=== PATIENT | female | born 1975 | race Caucasian/White ===

== ENCOUNTER 2019-06-19 08:52 | Emergency (ER) | payer MEDICARE, MEDICAID ==
[~2019-06-19] VITALS: Ht 165.1 cm; Wt 88.0 kg
[~2019-06-19 08:52] MED LIST: AMIT25TA PO; HYDR4TAB48 PO; LAMO150T3 PO; LAMO300T PO; Morphine ER PO; ONDA4TAB10 PO; OXYC15TA PO; TIZA2CAP PO
[2019-06-19] MEDS ORDERED: PROCHLORPERAZINE 5 MG/ML, 2ML ONE (09:29)
[2019-06-19] MEDS ORDERED: PROCHLORPERAZINE 5 MG/ML, 2ML IVPush ONE (09:30)
[2019-06-19] MEDS ORDERED: DIPHENHYDRAMINE 50 MG/ML, 1ML ONE (09:30)
--- NOTE | 2019-06-19 09:37 | NUR ---
PT PRESENTS W MIGRAINE, SENZITIVITY TO LIGHT, N/V. PT NEURO INTACT. PT HAS HX OF MIGRAINES. IV ESTABLISHED AND MEDICATED PER ORDERS
[2019-06-19] MEDS ORDERED: DIPHENHYDRAMINE 50 MG/ML, 1ML IVPush ONE (10:00)
--- NOTE | 2019-06-19 10:29 | NUR ---
pt sleeping, vss. to dc soon
[2019-06-19] MEDS ORDERED: SODIUM CHLORIDE FLUSH 10ML SYR IVF ONE (10:30)
[2019-06-19] MEDS ORDERED: ONDANSETRON 2MG/ML, 2ML ONE (10:35)
--- NOTE | 2019-06-19 10:54 | NUR ---
Patient/Caregiver given discharge instructions and they have confirmed that they understand the instructions. Patient ambulatory with steady gait.
[2019-06-19 10:55] VITALS: BP 120/82
[2019-06-19] MEDS ORDERED: ONDANSETRON 2MG/ML, 2ML IVPush ONE (11:00)
== END 2019-06-19 11:16 | disposition home or self-care (01) ==
LOC: ED 10:40
DX: G43.001 Migraine without aura, not intractable, with status migrainosus (principal); R00.0 Tachycardia, unspecified; G89.29 Other chronic pain; Z86.73 Personal history of transient ischemic attack (TIA), and cerebral infarction without residual deficits; F17.210 Nicotine dependence, cigarettes, uncomplicated
CPT/HCPCS: 96374; 96375; 99284; J0780; J1200; J2405